=== PATIENT | male | born 1995 | race Caucasian/White ===

== ENCOUNTER 2018-12-06 16:48 | Emergency (ER) | payer OTHER ==
--- NOTE | 2018-12-06 17:35 | EDPHY ---
General Time Seen by Provider: 12/06/18 17:20 Narrative: CLINICAL IMPRESSION: Pharyngitis, nausea, headaches, fever ASSESSMENT/PLAN: 23-year-old male presents to the emergency department 2 days after he was bitten by a tick on his right thigh complaining of nausea, sore throat, headache , and subjective fever. Patient declined all antipyretic therapy in the ED. Oropharynx is erythematous but with no asymmetry or evidence of peritonsillar abscess, uvulitis, retropharyngeal abscess, or Konrad's. Rapid strep is negative. Throat culture pending. Patient has had no rash. He does not describe the worst headache of his life and has no focal neurological deficits. However given that he was bitten by a tick I do recommend starting doxycycline. Patient did not wish to have any additional lab work including antibody testing for RMSF as he was not sure his insurance would cover it. He was agreeable to taking doxycycline. He was also given a short course of steroids for his throat pain and a prescription for stronger pain medication if needed. I encouraged primary care follow-up in the next 24-48 hours. Case discussed with DR. Ba. Low threshold for return to ED sooner as discussed and discharge papers. DIFFERENTIAL DX: Differential includes but not limited to tonsillitis, pharyngitis, viral URI, Trafalgar spotted fever ED PROCEDURES: See lab and/or imaging results below ED COURSE: 6:30 p.m.: Rapid strep negative. Case discussed with Dr. Ba. Plan to treat with doxycycline given history of tick bite and symptoms. Throat culture pending. Will also give prescription for dexamethasone and Ultram for breakthrough pain. CHIEF COMPLAINT: Feeling unwell after being bitten by a tick HPI: 23-year-old otherwise healthy male presents to the emergency department after he was bitten by a tick 2 days ago while hiking in [facility]. He pulled the tick out of his thigh and does not believe that it had been imbedded for much more than an hour. Today he began feeling nauseous, describes a gradual onset headache, as well as a sore throat. He is most bothered by his throat stating that it hurts when he swallows but he is able to tolerate secretions. He reports subjective fever and chills. No rash. No cough or shortness of breath. No abdominal pain, vomiting or diarrhea. He has a history of epilepsy but has not had seizure activity in 13 years and is well controlled with medications. PAST MEDICAL HISTORY: Epilepsy See triage summary and nurse notes for addition applicable history Pertinent Past Surgical History: None reported Family History: Noncontributory Social History: Otherwise healthy REVIEW OF SYSTEMS: A full 10 point review of systems was negative except for those mentioned in HPI. PHYSICAL EXAM: General Appearance: Alert, oriented, appropriate, cooperative, NAD, well hydrated, non-toxic appearing, hypertensive, tolerating secretions no hypoxia. HEENT: TMs are clear bilaterally no perforation or FB, no injection, no evidence of serous or mucopurulent otitis. Symmetric orpharyngeal erythema, no tonsillar asymmetry or exudate. Dentition without abnormality. Eyes: PERRLA, no acute vision change, nystagmus, swelling, discharge, pain or photosensitivity. Conjunctiva pink, no pallor or injection Neck: Supple, nontender, no lymphadenopathy, no midline pain, FROM, no meningismus. Respiratory: There are no retractions, lungs are clear to auscultation. Cardiac: Regular rate and rhythm, no murmurs or gallops. Skin: Warm, dry, no rashes, no nodules on palpation. Neuro: Alert and oriented x3, no focal neurological deficits. MEDICAL DECISION MAKING: Patient was seen independently. Secondary supervising physician at time of evaluation was: Dr. Ba. Diagnosis: Nausea, headache, pharyngitis, recent tick bite. New, requires workup Summary: See Assessment and Plan for summary of ED visit Clinical lab tests: ordered / reviewed. Discussed patient with another provider: Dr. MacDade Patient Progress: Stable for discharge. - History Smoking Status: Never smoked - Objective Vital Signs: Initial Vital Signs Temperature (C) 36.8 C 12/06/18 16:50 Heart Rate 91 12/06/18 16:50 Respiratory Rate 12 12/06/18 16:50 Blood Pressure 139/71 H 12/06/18 16:50 O2 Sat (%) 98 12/06/18 16:50 O2 Delivery Mode Room Air Allergies/Adverse Reactions: No Known Allergies Allergy (Unverified 12/06/18 16:49) Home Medications: Medication Instructions Recorded Depakote 12/06/18 Dexamethasone [Decadron 4 MG (*)] 4 mg PO DAILY #9 tab 12/06/18 Doxycycline Hyclate 100 mg PO BID #28 tab 12/06/18 LaMICtal 12/06/18 traMADol HCL [Ultram] 50 mg PO Q8 PRN #10 tablet 12/06/18 Laboratory Results: 12/06/18 12/06/18 Unknown 17:30 Group A Strep Screen NEGATIVE (NEGATIVE) Group A Strep DNA NEGATIVE (NEGATIVE) Medications Given: Discontinued Medications Doxycycline Hyclate (Doxycycline Hyclate) 100 mg PO EDNOW ONE PRN Reason: Protocol Stop: 12/06/18 18:46 Last Admin: 12/06/18 18:52 Dose: 100 mg Departure - Departure Disposition: Home, Routine, Self-Care Clinical Impression: Tonsillitis Tick bite Qualifiers: Encounter type: initial encounter Qualified Code(s): W57.XXXA - Bitten or stung by nonvenomous insect and other nonvenomous arthropods, initial encounter Condition: Good Instructions: Tick Bite (ED), Tonsillitis (ED) Additional Instructions: DISCHARGE INSTRUCTIONS FROM YOUR DOCTOR Thank you for visiting our emergency department today. You were treated by a physician special event assistant today and your case was reviewed with our ED Attending physician. Please keep in mind that discharge from the emergency department does not mean that there is nothing wrong - it simply means that we have not identified an emergency condition that requires further evaluation or treatment in the hospital. You should always plan to follow up with primary care for re- evaluation of your condition in the next 2-3 days. If you have been referred to a specialist, please call as soon as possible (today or tomorrow) to schedule your follow up appointment at the appropriate time. RAPID STREP TEST WAS NEGATIVE. THROAT CULTURE IS PENDING, WE WILL CALL IN 2-3 DAYS IF THIS IS POSITIVE FOR BACTERIA. WE ARE TREATING YOU WITH DOXYCYCLINE GIVEN THAT YOU ARE HAVING SYMPTOMS AND HAVE HAD A RECENT TICK BITE. PLEASE TAKE THIS ANTIBIOTIC DIRECTED. A PRESCRIPTION FOR STEROID AND PAIN MEDICATION WAS ALSO GIVEN. PLEASE FOLLOW-UP WITH A PRIMARY CARE DOCTOR, IF YOU DO NOT HAVE 1 A REFERRAL WAS GIVEN. RETURN TO THE EMERGENCY DEPARTMENT IMMEDIATELY FOR SEVERE WORSENING HEADACHE, ALTERED MENTAL STATUS, SEIZURES, HIGH FEVERS, RASH, INABILITY TO TOLERATE YOUR OWN SALIVA, OR ANY OTHER CONCERNS. People present with illnesses and injuries in different ways, and it is always possible that we have missed something. You may always return for re-evaluation if symptoms worsen or if they are not improving or if you develop new/different symptoms. Again, thank you for choosing our emergency department. We hope that you feel better. Referrals: NONE *PRIMARY CARE P,. [Primary Care Provider] - As per Instructions Quyen Smith MD [Medical Doctor] - As per Instructions Prescriptions: Dexamethasone [Decadron 4 MG (*)] 4 mg PO DAILY #9 tab Doxycycline Hyclate 100 mg PO BID #28 tab traMADol HCL [Ultram] 50 mg PO Q8 PRN #10 tablet PRN Reason: Pain, Breakthrough
[2018-12-06] MEDS ORDERED: DOXYCYCLINE 100 MG PREPACK#2 BTL TAKEHOME ONE (18:41)
[2018-12-06] MEDS ORDERED: DOXYCYCLINE HYCLATE 100 MG CAP/TAB PO ONE (18:45)
[2018-12-06 19:05] VITALS: BP 141/80
== END 2018-12-06 19:05 | disposition home or self-care (01) ==
DX: J03.90 Acute tonsillitis, unspecified (principal); W57.XXXA Bitten or stung by nonvenomous insect and other nonvenomous arthropods, initial encounter; Y93.01 Activity, walking, marching and hiking; Y92.828 Other wilderness area as the place of occurrence of the external cause